=== PATIENT | male | born 1990 | race Caucasian/White ===

== ENCOUNTER 2022-05-13 09:58 | Emergency (ER) | payer SELFPAY ==
[~2022-05-13] VITALS: Ht 182.9 cm; Wt 72.6 kg
--- NOTE | 2022-05-13 10:01 | NUR ---
AJ[facility] DOMINGUEZ PRESENT, REQUESTED FOR THEM TO BE CALLED UPON D/C
[2022-05-13 10:05] VITALS: BP 131/89
[2022-05-13] MEDS ORDERED: KETOROLAC 30 MG/ML VIAL IVP ONE (10:15)
[2022-05-13] MEDS ORDERED: ONDANSETRON 4 MG/2 ML VIAL IVP ONE (10:15)
[2022-05-13] MEDS ORDERED: NACL 0.9% 1,000 ML IV ONE (10:15)
[2022-05-13] MEDS ORDERED: KETOROLAC 30 MG/ML VIAL IM ONE (10:20)
[2022-05-13] MEDS ORDERED: ONDANSETRON 4 MG ODT PO ONE (10:20)
--- NOTE | 2022-05-13 10:34 | NUR ---
pt swabbed for covid(pao). blood drawn. walked to lab Addendum: 05/13/22 at 1039 by [facility] swabbed for flu. walked to lab
[2022-05-13] MEDS ORDERED: buprenorphine HCL 2 MG sublingual tab SL ONE (10:35)
[2022-05-13 10:36] LABS: BASOPHILS # (AUTO) 0.1 K/uL (0.00-0.22); BASOPHILS % (AUTO) 1.1 % (0.0-2.0); EOSINOPHILS % (AUTO) 0.2 % (0.0-4.0); HEMATOCRIT 44.1 % (36-52); HEMOGLOBIN 14.5 g/dL (12.0-18.0); LYMPHOCYTES # (AUTO) 0.9 K/uL (2.0-11.5); MEAN CORPUSCULAR HEMOGLOBIN 28 pg (27-31); MEAN CORPUSCULAR HGB CONC 33 g/dL (33-37); MONOCYTES # (AUTO) 0.2 K/uL (0.8-1.0); MONOCYTES % (AUTO) 4.5 % (1.7-9.3); NEUTROPHILS # (AUTO) 3.8 K/uL (1.8-7.7); NEUTROPHILS % (AUTO) 76.2 % (42.2-75.2); PLATELET COUNT (AUTO) 270 K/uL (140-450); RED BLOOD CELL COUNT(AUTO) 5.12 MIL/uL (4.20-6.10); RED CELL DISTRIBUTION WIDTH 13.6 % (11.6-13.7)
--- NOTE | 2022-05-13 10:40 | NUR ---
31YO MALE PT BIBA NEAR BY [facility] C/O GEN WEAK XY. ON SCENE ,PT FOUND LAYING ON FLOOR. PT STATES GOING TO "LOOK FOR HELP". REPORTS DAILY FENTANYL USE AND FEELING LIKE HES STARTING TO "WITHDRAWAL" , LAST DOSE BEING 2 DAYS AGO. STATES MILD CHEST PAIN. DENIES N/V/D, SOB. PT AAOX4, AMB W/ ASSIST. ON [employer], BED AT LOWEST POSITION, BED RAILS UPX2. SEIZURE PADS IN PLACE. HX:DENIES NKA
[2022-05-13 11:19] LABS: ALBUMIN 4.4 g/dL (3.4-5.0); ANION GAP 13.1 (8-16); APPEARANCE,URINE CLOUDY (CLEAR); BILIRUBIN,URINE NEGATIVE (NEGATIVE); BLOOD, URINE NEGATIVE (NEGATIVE); CARBON DIOXIDE 27.8 mmol/L (21-32); COLOR,URINE YELLOW (YELLOW); CREATININE 0.8 mg/dL (0.6-1.3); LEUKOCYTE ESTERASE ,URINE NEGATIVE (NEGATIVE); NITRITE, URINE NEGATIVE (NEGATIVE); POTASSIUM 3.9 mmol/L (3.5-5.1); TOTAL BILIRUBIN 0.5 mg/dL (0.0-1.0); UGLUCOSE NEGATIVE (NEGATIVE)
[2022-05-13 11:38] LABS: RBC,URINE NONE SEEN /HPF (0-5); WBC,URINE 0-5 /HPF (0-5)
[2022-05-13 11:42] LABS: BARBITURATE, URINE NEGATIVE ng/ml (NEG <=200); BENZODIAZEPINE, URINE NEGATIVE ng/mL (NEG <=200); CANNABINOID, URINE POSITIVE ng/mL (NEG <=50); COCAINE, URINE NEGATIVE ng/mL (NEG <=300); OPIATE, URINE POSITIVE ng/mL (NEG <=2000); PHENCYCLIDINE SCREEN,URINE NEGATIVE ng/mL (NEG <=25)
[2022-05-13] MEDS ORDERED: ONDA-188 PO (12:19)
[2022-05-13] MEDS ORDERED: NALO4SPR NS (12:19)
[2022-05-13] MEDS ORDERED: BUPR8TAB3 SL (12:19)
[2022-05-13 12:31] VITALS: BP 130/76
--- NOTE | 2022-05-13 12:32 | NUR ---
IV removed, catheter intact and site benign. Applied folded 4x4 gauze and tape to stop bleeding.
--- NOTE | 2022-05-13 12:42 | NUR ---
PD AT BEDSIDE
--- NOTE | 2022-05-13 12:48 | NUR ---
PATIENT EXAMINED BY . PATIENT MEDICALLY CLEARED AND RELEASED TO [facility] IN STABLE CONDITION. ORIGINAL PRE-BOOK FORM GIVEN TO OFFICER REJI.
--- NOTE | 2022-05-13 12:48 | NUR ---
Patient discharged with v/s stable. Written and verbal after care instructions FOR OPIOID WITHDRAWAL AND TREATMENT given and explained. Patient alert, oriented and verbalized understanding of instructions. WHEELCHAIR ASSISTED BY PD. All questions addressed prior to discharge. ID band removed. Patient advised to follow up with PMD. Rx of NARCAN, ZOFRAN AND BUPRENORPHINE given. Opportunity to ask questions provided and answered. FOOD AND HOMELESS/DRUG ABUSE RESOURCE PACKET PROVIDED.
--- NOTE | 2022-05-13 12:49 | NUR ---
The patient's care was reviewed and supervised by Chary Traylor RN.
== END 2022-05-13 12:48 | disposition home or self-care (01) ==
LOC: MED 09:58
DX: F11.23 Opioid dependence with withdrawal (principal); F19.10 Other psychoactive substance abuse, uncomplicated; R74.01 Elevation of levels of liver transaminase levels; F15.90 Other stimulant use, unspecified, uncomplicated; F12.90 Cannabis use, unspecified, uncomplicated; Z20.822 Contact with and (suspected) exposure to COVID-19; Z79.899 Other long term (current) drug therapy
CPT/HCPCS: 36415; 80053; 80305; 81001; 83690; 85025; 87426; 87804; 93005; 96361; 96374; 96375; 99284; J1885; J2405; J7030